=== PATIENT | female | born 1995 | race Hispanic/Latino ===

== ENCOUNTER 2018-07-20 19:26 | Emergency (ER) | payer MEDICAID, OTHER ==
--- NOTE | 2018-07-20 21:38 | EDPHYS ---
Physician Documentation [facility] Name: Wendie Lopez Age: 22 yrs Sex: Female : 1995 Arrival Date: 07/20/2018 Time: 19:28 Bed 9 Private MD: Gustavo Fuller B ED Physician William Patricio HPI: 07/21 02:11 This 22 yrs old Female presents to ER via Ambulatory with complaints of tw4 Congestion, Body ache, Sore Throat. 02:11 The patient presents with sore throat. The patient describes throat pain as scratchy. tw4 Onset: The symptoms/episode began/occurred today. Severity of symptoms: At their worst the symptoms were mild, in the emergency department the symptoms are unchanged. Modifying factors: The symptoms are alleviated by nothing, the symptoms are aggravated by nothing. Associated signs and symptoms: The patient has no apparent associated signs or symptoms. The patient has not experienced similar symptoms in the past. 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 - Social history:: Smoking status: Patient/guardian denies using tobacco. - Ebola Screening: : Patient negative for fever greater than or equal to 101.5 degrees Fahrenheit, and additional compatible Ebola Virus Disease symptoms Patient denies exposure to infectious person Patient denies travel to an Ebola-affected area in the 21 days before illness onset. ROS: 07/21 02:11 Eyes: Negative for injury, pain, redness, and discharge. tw4 Abdomen/GI: Negative for abdominal pain, nausea, vomiting, diarrhea, and constipation. Cardiovascular: Negative for chest pain, palpitations, and edema, Back: Negative for injury and pain, MS/Extremity: Negative for injury and deformity, Skin: Negative for injury, rash, and discoloration. Constitutional: Negative for body aches, chills, fatigue, fever, malaise. Respiratory: Positive for cough, Negative for hemoptysis, orthopnea, pleurisy, shortness of breath. Exam: 02:11 Constitutional: This is a well developed, well nourished patient who is awake, alert, tw4 and in no acute distress. Eyes: Pupils equal round and reactive to light, extra-ocular motions intact. Lids and lashes normal. Conjunctiva and sclera are non-icteric and not injected. Cornea within normal limits. Periorbital areas with no swelling, redness, or edema. Chest/axilla: Normal chest wall appearance and motion. Nontender with no deformity. No lesions are appreciated. Cardiovascular: Regular rate and rhythm with a normal S1 and S2. No gallops, murmurs, or rubs. Normal PMI, no JVD. No pulse deficits. Respiratory: Lungs have equal breath sounds bilaterally, clear to auscultation and percussion. No rales, rhonchi or wheezes noted. No increased work of breathing, no retractions or nasal flaring. Abdomen/GI: Soft, non-tender, with normal bowel sounds. No distension or tympany. No guarding or rebound. No evidence of tenderness throughout. Back: No spinal tenderness. No costovertebral tenderness. Full range of motion. MS/ Extremity: Pulses equal, no cyanosis. Neurovascular intact. Full, normal range of motion. Neuro: Awake and alert, GCS 15, oriented to person, place, time, and situation. Cranial nerves II-XII grossly intact. Motor strength 5/5 in all extremities. Sensory grossly intact. Cerebellar exam normal. Normal gait. Vital Signs: 07/20 20:08 BP 133 / 86; Pulse 97; Resp 18; Temp 99.0(O); Pulse Ox 98% on R/A; Weight 61.69 kg (R); fc Height 4 ft. 10 in. (147.32 cm) (R); Pain 6/10; 20:08 Body Mass Index 28.42 (61.69 kg, 147.32 cm) fc MDM: 20:16 Patient medically screened. tw4 07/21 02:11 Data reviewed: vital signs, nurses notes. Data interpreted: Pulse oximetry: tw4 Interpretation: normal. Counseling: I had a detailed discussion with the patient and/or guardian regarding: the historical points, exam findings, and any diagnostic results supporting the discharge/admit diagnosis. Special discussion: I discussed with the patient/guardian in detail that at this point there is no indication for admission to the hospital. It is understood, however, that if the symptoms persist or worsen the patient needs to return immediately for re-evaluation. 07/20 20:09 Order name: Flu fc 07/20 20:09 Order name: Strep fc 07/20 20:45 Order name: Throat Culture EDMS Administered Medications: No medications were administered Disposition: 07/20/18 21:38 Discharged to Home. Impression: Viral syndrome. - Condition is Stable. - Discharge Instructions: Viral Respiratory Infection. - Medication Reconciliation Form, Thank You Letter, Antibiotic Education, Prescription Opioid Use form. - Follow up: Gustavo Fuller MD; When: Upon discharge from the Emergency Department; Reason: If symptoms return, Further diagnostic work-up, Recheck today's complaints, Continuance of care. - Problem is new. - Symptoms are unchanged. Signatures: Dispatcher [employer] EDMS Lesly Barrera RN RN Daisy Castillo RN RN lp1 William Patricio MD MD tw4 Corrections: (The following items were deleted from the chart) 07/20 21:43 21:38 07/20/2018 21:38 Discharged to Home. Impression: Viral syndrome. Condition is lp1 Stable. Forms are Medication Reconciliation Form, Thank You Letter, Antibiotic Education, Prescription Opioid Use. Follow up: Gustavo Fuller; When: Upon discharge from the Emergency Department; Reason: If symptoms return, Further diagnostic work-up, Recheck today's complaints, Continuance of care. Problem is new. Symptoms are unchanged. tw4
--- NOTE | 2018-07-20 21:38 | ER ---
Nurse's Notes [facility] Name: Wendie Lopez Age: 22 yrs Sex: Female : 1995 Arrival Date: 07/20/2018 Time: 19:28 Bed 9 Private MD: Gustavo Fuller B Diagnosis: Viral syndrome Presentation: 07/20 20:06 Presenting complaint: Patient states: that yesterday she woke up with cough, congestion fc with green sputum, sore throat and aching body. upper chest throat area aches worse with deep breating. Transition of care: patient was not received from another setting of care. Onset of symptoms was July 19, 2018. Risk Assessment: Do you want to hurt yourself or someone else? Patient reports no desire to harm self or others. Initial Sepsis Screen: Does the patient meet any 2 criteria? HR > 90 bpm. Yes Does the patient have a suspected source of infection? Yes: Productive cough/pneumonia. Care prior to arrival: None. 20:06 Method Of Arrival: Ambulatory fc 20:06 Acuity: LORRIE 4 fc REVIEW RN: 20:08 LMP 01/31/2018, Verified, EDC 11/07/2018, Gestational age from LMP: 24 weeks 3 fc days Historical: - Allergies: 20:08 No Known Allergies; fc - Home Meds: 20:08 None [Active]; fc - PMHx: 20:08 Asthma; allergies; fc - PSHx: 20:08 None; fc - Immunization history:: Last tetanus immunization: up to date. - Social history:: Smoking status: Patient/guardian denies using tobacco. - Ebola Screening: : Patient negative for fever greater than or equal to 101.5 degrees Fahrenheit, and additional compatible Ebola Virus Disease symptoms Patient denies exposure to infectious person Patient denies travel to an Ebola-affected area in the 21 days before illness onset. Screenin:16 Abuse screen: Denies threats or abuse. Denies injuries from another. Nutritional lp1 screening: No deficits noted. Tuberculosis screening: No symptoms or risk factors identified. Fall Risk None identified. Assessment: 20:16 General: Appears in no apparent distress. Behavior is appropriate for age. Pain: lp1 Complains of pain in throat. Neuro: Level of Consciousness is awake, alert, obeys commands. Cardiovascular: Patient's skin is warm and dry. Respiratory: Reports cough that is productive, pain with cough Airway is patent Respiratory effort is even, Respiratory pattern is regular, Breath sounds are clear bilaterally. GI: No deficits noted. : No deficits noted. EENT: Throat is reddened Reports nasal congestion. Derm: Skin is pink, warm \T\ dry. Musculoskeletal: Circulation, motion, and sensation intact. Vital Signs: 20:08 BP 133 / 86; Pulse 97; Resp 18; Temp 99.0(O); Pulse Ox 98% on R/A; Weight 61.69 kg (R); fc Height 4 ft. 10 in. (147.32 cm) (R); Pain 6/10; 20:08 Body Mass Index 28.42 (61.69 kg, 147.32 cm) ED Course: 19:28 Patient arrived in ED. am2 19:29 Gustavo Fuller MD is Private Physician. am2 20:07 Triage completed. 20:08 Arm band placed on Patient placed in an exam room, on a stretcher. 20:15 Daisy Castillo, RN is Primary Nurse. lp1 20:16 William Patricio MD is Attending Physician. tw4 20:16 Patient has correct armband on for positive identification. lp1 20:18 No provider procedures requiring assistance completed. Patient did not have IV access lp1 during this emergency room visit. 21:37 Gustavo Fuller MD is Referral Physician. tw4 Administered Medications: No medications were administered Outcome: 21:38 Discharge ordered by MD. tw4 21:43 Discharged to home ambulatory. lp1 21:43 Condition: good 21:43 Discharge instructions given to patient, Instructed on discharge instructions, follow up and referral plans. Demonstrated understanding of instructions, follow-up care. 21:43 Patient left the ED. lp1 Signatures: Lesly Barrera RN RN Daisy Castillo RN RN lp1 Cece Judd am2 William Patricio MD MD tw4 Corrections: (The following items were deleted from the chart) 20:18 20:16 EENT: Reports nasal congestion lp1 lp1
== END 2018-07-20 21:43 | disposition home or self-care (01) ==
LOC: ER 19:26
DX: O98.512 Other viral diseases complicating pregnancy, second trimester (principal); B34.9 Viral infection, unspecified; Z3A.24 24 weeks gestation of pregnancy
CPT/HCPCS: 87070; 87081; 87804; 99281

== ENCOUNTER 2018-10-16 05:30 | Inpatient (IN) | payer OTHER ==
[2018-10-16] MEDS ORDERED: PROMETHAZINE 25 MG/ML VIAL IM PRN (10:17)
[2018-10-16] MEDS ORDERED: METHYLERGONOVINE 0.2MG/ML AMP IM PRN (10:17)
[2018-10-16] MEDS ORDERED: BUTORPHANOL 1 MG/ML INJ IV PRN (10:17)
[2018-10-16] MEDS ORDERED: MEPERIDINE HCL 25 MG/0.5 ML IV PRN (10:17)
[2018-10-16] MEDS ORDERED: CARBOPROST TROME 250 MCG/ML IM PRN (10:17)
[2018-10-16] MEDS ORDERED: Ringers Lactate 1,000 ML IV PRN (10:17)
[2018-10-16] MEDS ORDERED: OXYTOCIN/LR 20 UNIT/1,000 ML BAG IV ONE (10:28)
[2018-10-16 10:36] LABS: RPR Titer ND
[2018-10-16 10:41] LABS: Urine Appearance CLEAR; Urine Bilirubin NEGATIVE (NEG); Urine Blood NEGATIVE (NEG); Urine Color YELLOW; Urine Glucose NEGATIVE (NEG); Urine Protein NEGATIVE (NEG); Urine Specific Gravity 1.015 (1.005-1.030); Urine Urobilinogen 0.2 mg/dL (0.2-1.0); Urine pH 6.5 (5.0-7.0)
[2018-10-16 10:43] LABS: Urine Microscopic Reflex ORDER UMIC
[2018-10-16] MEDS ORDERED: Ringers Lactate 1,000 ML IV SCH (11:00)
[2018-10-16] MEDS ORDERED: OXYTOCIN/LR 20 UNIT/1,000 ML BAG IV SCH ×2 (11:00→15:00)
[2018-10-16 11:15] LABS: Urine Bacteria <20 /HPF (<20); Urine Culture Reflex Order REFLEXED; Urine Mucus 2+ /HPF (NONE SEEN); Urine RBC <5 /HPF (NONE SEEN)
--- NOTE | 2018-10-16 11:59 | PN ---
A 23-year-old primigravida, 37 weeks 4 days, came in, in labor, went from 3.5 to 4.5 on admission. S he was 2.5 when last seen in the office. She is on light Pitocin. At this point, baby is well appli ed at -1 station, rupture of membranes, 4 to 4.5 cm dilated, 70% effaced. Anticipate more rapid prog ress from this point. She is Rh positive, immune to Rubella. Negative beta strep screen. Labor juanjo k given. The patient is trying natural childbirth. HARIS/FABRICE Voice ID: [id number] Report ID: [id number]
[2018-10-16 12:38] VITALS: BMI 31.3
[2018-10-16] MEDS ORDERED: FENTANYL CITR 100 MCG/2 ML IV ONE (12:43)
[2018-10-16] MEDS ORDERED: ROPIVACAINE HCL 100 ML IV PRN (12:44)
[2018-10-16] MEDS ORDERED: ROPIVACAINE HCL 0.2% 20ML AMP IV ONE (12:48)
[2018-10-16] MEDS ORDERED: METHYLERGONOVINE 0.2MG/ML AMP IM ONE (13:16)
[2018-10-16] MEDS ORDERED: LIDOCAINE 2% INJ, 20 mL 20 ML ONE (14:14)
[2018-10-16] MEDS ORDERED: IBUPROFEN 200 MG TAB PO PRN (14:23)
[2018-10-16] MEDS ORDERED: Oxycodone HCl/Acetaminophen 1 TAB TAB PO PRN (14:23)
[2018-10-16] MEDS ORDERED: BISACODYL 10 MG RECTAL SUPP RECT PRN (14:23)
[2018-10-16] MEDS ORDERED: ACETAMINOPHEN 500 MG TAB PO PRN (14:23)
[2018-10-16] MEDS ORDERED: DIPHENHYDRAMINE 25 MG TAB/CAP PO PRN (14:23)
[2018-10-16] MEDS ORDERED: DOCUSATE NA/SENNA CONC 1 TAB PO PRN (14:23)
[2018-10-16] MEDS: Oxycodone HCl/Acetaminophen 1 TAB TAB PO PRN (18:36)
--- NOTE | 2018-10-16 18:56 | PN ---
The patient is complete, pushing. I think the baby is still occiput posterior, but she is making goo d progress to bring it down. I think if she, within the next 20 minutes hopefully will rotate the ba by to an anterior position, then I think we will have a more expeditious delivery at that point. HARIS/FABRICE Voice ID: [id number] Report ID: [id number]
[2018-10-16 20:53] LABS: RPR (Rapid Plasma Reagin) NON-REACT (NON-REACT)
[2018-10-17] MEDS: Oxycodone HCl/Acetaminophen 1 TAB TAB PO PRN (01:10)
--- NOTE | 2018-10-17 01:26 | OP ---
Surgeon: Gustavo Fuller MD Description Of Procedure: A 23-year-old primigravida, 37 weeks 4 days, came in, in active labor. Du ring the labor, Stadol 1 mg IV. Rupture of membranes at 4.5 cm, clear fluid. The patient went rapid ly to complete after reaching 6 cm, second stage of about 30 to 40 minutes. Spontaneous vaginal deli very of an estimated 6-pound male infant, Apgars 8 and 9. Small first-degree laceration repaired wit h 2-0 chromic under local infiltration. Cristobal delivery of the placenta, which was inspected and no blaze to be intact and normal. A 350 cc or less blood loss. The patient is Rh positive, immune to Rub mariel. Negative beta strep screen. Tolerated all procedures well. Final Diagnoses: Term intrauterine , 37 weeks 4 days, spontaneous vaginal delivery. HARIS/FABRICE Voice ID: [id number] Report ID: [id number]
--- NOTE | 2018-10-17 12:39 | DS ---
A 23-year-old primigravida, 37 weeks 4 days, came in active labor. Subsequently delivered uneventful ly of a 5-pound, 9-ounce male , Apgars 8 and 9. Small midline first-degree laceration, repaire d with 2-0 chromic under local infiltration. Schultze delivery of the placenta, which inspected and noted to be intact and normal, 350 cc or less blood loss. Rh positive, immune to Rubella. Negative beta strep screen. ; afebrile, ambulating and voiding. Lochia is normal. Baby is doing w ell. She will be dismissed later this evening. To report back to my office in 6 weeks for followup. To report any temperature elevation of 100 degrees or greater, severe pain, heavy bleeding, or any other type of abnormalities. Dismissed with tramadol for analgesia, although she may elect to take M otrin instead. She has had her Tdap immunization during her . Final Diagnoses: Term intrauterine 37 weeks 4 days, spontaneous labor, vaginal delivery. HARIS/FABRICE Voice ID: [id number] Report ID: [id number]
[2018-10-17 16:44] VITALS: BP 134/81; TEMP 98.4
[2018-10-21 04:25] LABS: HBsAG Nonreactive (Nonreactive)
== END 2018-10-17 17:45 | disposition home or self-care (01) | DRG 807 ==
LOC: L&D 05:30 → 2ND-WC 09:47
PROVIDERS: ADMIT Specialist; ATTEND Specialist
PROC: 10E0XZZ Delivery of Products of Conception, External Approach (ICD-10-PCS; principal; 2018-10-16)
PROC: 0HQ9XZZ Repair Perineum Skin, External Approach (ICD-10-PCS; 2018-10-16)
DX: O70.0 First degree perineal laceration during delivery (principal); Z37.0 Single live birth; Z3A.37 37 weeks gestation of pregnancy
CPT/HCPCS: 36415; 81003; 81015; 85025; 86592; 86901; 87086; 87088; 87340; 99218; J0595; J2175; J2210; J2550; J2590; J2795; J3010